=== PATIENT | male | born 1965 | race Caucasian/White ===

== ENCOUNTER → 2016-05-22 | Outpatient (CLI) | payer OTHER ==
[~2016-05-22] MED LIST: ASPI81TA21 PO; BNC/20125 PO; BUPR-79 PO; CYM/60 PO; ESCI1TAB10 PO; FEXO180T PO; HYZ/10015 PO; LPR25 PO; MULT-600 PO; OXYC-57 PO; RABE20TA5 PO; Wellbutrin PO
[2016-05-22 18:26] LABS: BASO % 0.9 %; BASO ABS # 0.08 K/uL (0-0.2); COMPLETE YES; EOS % 4.8 %; IG% 0.2 %; LYMPH % 28.1 %; LYMPH ABS # 2.62 K/uL (1.2-3.4); MEAN CELL VOLUME 83.8 fL (80-100); MEAN CORPUSCULAR HEMOGLOBIN 29.7 pg (25-34); MEAN CORPUSCULAR HGB CONC 35.4 g/dl (32-36); MEAN PLATELET VOLUME 11.1 fL (7.4-10.4); MONO % 7.6 %; NEUT % 58.4 %; PLATELET COUNT 309 K/uL (130-400); RED BLOOD COUNT 4.89 M/uL (4.7-6.1); WHITE BLOOD COUNT 9.33 K/uL (4.8-10.8)
[2016-05-22 19:06] LABS: ALT/SGPT 46 U/L (12-78); AST/SGOT 10 U/L (15-37); BLOOD UREA NITROGEN 28 mg/dl (7-18); BUN/CREATININE RATIO 23.2 (10-20); CALCIUM 8.7 mg/dl (8.5-10.1); CARBON DIOXIDE 25 mmol/L (21-32); CHLORIDE 110 mmol/L (98-107); GLUCOSE 128 mg/dl (70-99); POTASSIUM 3.5 mmol/L (3.5-5.1); SODIUM 144 mmol/L (136-145)
[2016-05-22 19:10] LABS: ALB/GLOB RATIO 1.2 (0.9-2); ALKALINE PHOSPHATASE 65 U/L (45-117); CHOLESTEROL 140 mg/dl (0-200); CHOLESTEROL/HDL RATIO 3.4; HDL CHOLESTEROL 41 mg/dl; LDL CHOLESTEROL CALCULATED 62 mg/dl; TRIGLYCERIDES 184 mg/dl (0-150); VERY LOW DENSITY LIPOPROT CALC 37 mg/dl
== END | disposition home or self-care (01) ==
LOC: C.LABSPEC 18:01
PROVIDERS: ATTEND Family Medicine
DX: I10 Essential (primary) hypertension (principal)

== ENCOUNTER → 2016-10-23 | Day surgery (SDC) | payer OTHER ==
--- NOTE | 2016-10-22 12:10 | History and Physical: Surg Cnt ---
History & Physical Date Oct 22, 2016. Chief Complaint polyps causing nasal obstruction and headaches History of Present Illness The patient is a 51 year old male with complaints of chronic sinusitis/polyposis Past Medical/Surgical History Medical Problems: (1) Hypertension Additional History Hepatic Disease: No Endocrine Disorder: No Kidney Disease: No Hypertension: Yes Heart Disease: No Bleeding Tendencies: No Infectious Diseases: No Allergies Coded Allergies: No Known Allergies (Unverified , 09/08/14) Home Medications Scheduled Aspirin Enteric Coated (Ecotrin Or Generic), 81 MG PO QAM Escitalopram Oxalate (Lexapro), 40 MG PO QAM Fexofenadine Hcl (Celeste Allergy), 180 MG PO QAM Metoprolol Tartrate (Lopressor), 25 MG PO BID Multiple Vitamins W/ Minerals (Mens Multi Vitamin & Mine), 1 TABLET PO QAM Olmesartan/Hctz (Benicar Hct 20/12.5), 1 TABLET PO QAM Rabeprazole Sodium (Aciphex), 20 MG PO BID [Wellbutrin], 2 TABLETS PO QAM Physical Examination Skin: warm/dry, no rash Eyes: normal inspection, EOMI, sclerae normal ENT: normal ENT inspection, pharynx normal Head: normocephalic, atraumatic Neck: supple, no adenopathy, trachea midline Respiratory/Chest: lungs clear, normal breath sounds, no respiratory distress Cardiovascular: regular rate, rhythm, no edema, no murmur Abdomen / GI: normal bowel sounds, non tender Back: normal inspection Extremities: normal inspection, normal range of motion Neurologic/Psych: no motor/sensory deficits, alert, normal reflexes, oriented x 3 Diagnosis chronic sinusitis/polyposis Plan of Treatment endoscopic sinus surgery
[2016-10-22 16:04] VITALS: Ht 180.3 cm; Wt 111.4 kg
[~2016-10-23] VITALS: Ht 180.3 cm; Wt 111.4 kg
[~2016-10-23] MED LIST changes: +ATROPINE SULFATE 0.1 MG/ML 5ML SYR IV PRN; -BNC/20125 PO; +CEFAZOLIN 2000 MG/60 ML D5W IV SCH; +DEXAMETHASONE SOD INJ 4 MG/ML VIAL ONE; -ESCI1TAB10 PO; +EpHEDrine SULFATE INJ 50 MG/ML AMP IV PRN; +EpINEphrine INJ 1MG/ML AMP 1 MG/ML AMP ONE; +FENTANYL CITRATE INJ 50 MCG/1 ML 2 ML VIAL IV PRN; +FENTANYL CITRATE INJ 50 MCG/1 ML 2 ML VIAL ONE; +LACTATED RINGER'S 1000ML 1,000 ML IV SCH; +LIDO 2%/EPINEPHRINE 1:100000 20 ML VIAL INFIL ONE; +LIDOCAINE 2% 20 MG/ML 5ML SYR ONE; +LIDOCAINE 4% MPF SOAK 5 ML = 1 DOSE TOP ONE; +MIDAZOLAM HCL 1 MG/ML 2ML VIAL ONE; -MULT-600 PO; +ONDANSETRON INJ 2 MG/ML 2 ML VIAL IV PRN; +ONDANSETRON INJ 2 MG/ML 2 ML VIAL ONE; +OXYCODONE/ACETAMINOPHEN 5-325 TAB PO PRN; +PROPOFOL IV EMULSION 10 MG/ML 20 ML VIAL IV ONE; +SODIUM CHLORIDE 0.9% 1000ML 1,000 ML IV SCH; -Wellbutrin PO
--- NOTE | 2016-10-23 07:15 | History & Physical Bridge Note ---
H&P Re-Evaluation Bridge Note: I have examined the patient, reviewed the History & Physical and in the interval since the performance of the History & Physical I have noted the following changes of clinical significance: No changes noted
--- NOTE | 2016-10-23 09:54 | Discharge Instructions-SurgCtr ---
Discharge Instructions Date of Service Oct 23, 2016. Visit Reason for Visit: Chronic Sinusitis/Polyps Discharge Discharge Diagnosis / Problem: same Discharge Goals Goal(s): Improve function Medications Stopped Medications Name(s): ASA stopped 1 week ago Activity Recommendations Activity Limitations: resume your previous activity Anesthesia . Post Anesthesia Instructions: If you have had General Anesthesia or IV Sedation: * Do not drive today. * Resume driving when surgeon permits. * Do not make important decisions or sign legal documents today. * Call surgeon for: 1. Temperature elevations greater than 101 degrees F. 2. Uncontrollable pain. 3. Excessive bleeding. 4. Persistent nausea and vomiting. 5. Medication intolerance (nausea, vomiting or rash). * For nausea and vomiting use only clear liquids such as: tea, soda, bouillon until nausea subsides, then gradually increase diet as tolerated. * If you have any concerns or questions, call your surgeon's office. If physician is unavailable and it is an emergency, call 911 or go to the nearest emergency room. . Instructions / Follow-Up Instructions / Follow-Up ACTIVITY RECOMMENDATIONS: * Being up and around is good, but no strenuous activity, heavy lifting or physical exertion for one week. * Keep your head elevated 30 degrees when lying down or sleeping. * Do not blow your nose for 48 hours, sniff back instead. * Avoid hot showers. OVER THE COUNTER MEDICATIONS: * You may use Tylenol * Avoid aspirin or aspirin containing products, e.g. as they may increase bleeding. SPECIAL CARE INSTRUCTIONS: * Expect to have bloody drainage from your nose and/or down your throat for one to three days. Change drip pad as needed. * Begin irrigating your nose with saline solution today, at least six to ten times per day and sniff back to help remove old clots or crust. * You may experience nasal and facial congestion, pain and pressure, this is normal. * Please call with any significant and/or progressive pain, redness, swelling around the eyes, visual changes, fever of 101.5 degrees F, active bleeding or any problems or concerns. * If active bleeding occurs, spray the nose three times at one minute intervals with Afrin spray and call or cell phone: . If unable to reach the doctor, go to the nearest Emergency Department. Special Diet: * Avoid extremely hot fluids. FOLLOW UP VISIT: Follow-up Visit with Dr. Obrien If not already scheduled, please call to schedule. Diet Recommendations Home Diet: no limitations Procedures Procedures Performed: Endoscopic Sinus Surgery, Bilateral Frontal, Maxillary and total Ethmoidectomy Pending Studies Studies pending at discharge: no Medical Emergencies . Who to Call and When: Medical Emergencies: If at any time you feel your situation is an emergency, please call 911 immediately. . Non-Emergent Contact Non-Emergency issues call your: Primary Care Provider . . "Provider Documentation" section prepared by Krystyna Obrien. . [place] Drug Monitoring Program Search Results: no issues identified
--- NOTE | 2016-10-23 09:59 | [facility] Operative Report ---
Operative Report Operative Date Oct 23, 2016. Pre-Operative Diagnosis Chronic Sinusitis/Polyps Post-Operative Diagnosis same as preop Procedure(s) Performed Endoscopic Sinus Surgery, Bilateral Frontal, Maxillary and total Ethmoidectomy Surgeon Dr. Obrien Home Appraiser Surgeon(s) none Estimated Blood Loss 20ml Findings Nasal polyposis and stenosis of the frontal sinuses Specimens none per surgeon Anesthesia general with LMA Complication(s) None Disposition Recovery Room / PACU Implants Propel 4 Indications 51-year-old gentleman with severe nasal polyposis persistent headaches Description of Procedure The patient was brought to the operating room and placed in the supine position. He was prepped and draped in the usual sterile manner. BrainLab device was calibrated and used for the entire procedure. The right nasal frontal duct was cannulated with the guidewire and dilated using the 6 mm balloon. Frontal sinusotomy was performed using the shaver couple with the BrainLab device opening up the adhesions from the middle turbinate to the lateral wall and also removing the residual posterior wall of the Agger nasi cell with adhesions there to open up the nasal frontal duct. The guidewire was left in place as a marker and residual polyps in the ethmoid air cells were cleaned from anteriorly to posteriorly delineating the skull base superiorly and lamina papyracea bilaterally with the BrainLab device and following the structures anteriorly to exonerate all the residual polyps the nasal frontal duct was redilated with the 6 mm balloon. There was also a central cell on the right side which was dilated with the 6 mm balloon. The maxillary sinus was cannulated with the guidewire and dilated using the 6 mm balloon. The maxillary sinus ostia was opened by removing polypoid tissue from the ostia. The left frontal sinusotomy total ethmoidectomy maxillary sinus antrostomy was performed in a similar manner. Propel stents were placed with mini stents in the nasal frontal ducts and with regular stents in the ethmoid cavity. The patient tolerated procedure well was taken to recovery area in satisfactory condition. I attest to the content of the Intraoperative Record and any orders documented therein. Any exceptions are noted below.
[2016-10-23 10:23] VITALS: TEMP 36.3
--- NOTE | 2016-10-23 10:30 | Anesthesia Progress Nt - [facility] ---
Anesthesia Post Op Note Date & Time Oct 23, 2016 at 10:29 Vital Signs Pain Intensity: 0 Vital Signs Past 12 Hours Date Time Temp Pulse Resp B/P (MAP) Pulse Ox O2 Delivery O2 Flow Rate FiO2 10/23/16 10:23 36.3 80 18 150/89 (109) 98 Room Air 10/23/16 10:12 36.4 80 20 120/80 95 Room Air 10/23/16 10:11 120/80 10/23/16 10:10 80 20 10/23/16 10:10 78 20 94 10/23/16 10:06 135/91 10/23/16 10:05 79 25 95 10/23/16 10:05 78 25 10/23/16 10:00 80 21 135/97 98 10/23/16 10:00 80 21 10/23/16 09:56 123/82 10/23/16 09:55 82 7 10/23/16 09:55 82 7 94 10/23/16 09:51 122/91 10/23/16 09:50 80 16 10/23/16 09:50 80 16 92 10/23/16 09:46 156/92 10/23/16 09:45 36.1 87 16 155/92 98 Humidified Oxygen 6 Mask 10/23/16 09:45 85 10/23/16 09:45 85 97 10/23/16 06:51 36.6 58 16 161/84 (109) 97 Room Air Notes Mental Status: alert / awake / arousable, participated in evaluation Pt Amnestic to Procedure: Yes Nausea / Vomiting: adequately controlled Pain: adequately controlled Airway Patency, RR, SpO2: stable & adequate BP & HR: stable & adequate Hydration State: stable & adequate Anesthetic Complications: no major complications apparent
[2016-10-23 10:42] VITALS: BP 154/83; PULSE 74; O2SAT 98
== END | disposition home or self-care (01) ==
LOC: X.SURG 06:35
PROVIDERS: ATTEND Otolaryngology
DX: J32.9 Chronic sinusitis, unspecified (principal); J33.9 Nasal polyp, unspecified; I10 Essential (primary) hypertension; Z79.82 Long term (current) use of aspirin; Z79.899 Other long term (current) drug therapy